=== PATIENT | female | born 1955 | race Caucasian/White ===

== ENCOUNTER 2018-11-25 13:46 | Emergency (ER) | payer BC ==
[2018-11-25 15:01] LABS: #Eosinphils 0.1 thou/uL (0.0-0.7); #Lymphocytes 0.6 thou/uL (1.20-3.40); #Monocytes 0.6 thou/uL (0.11-0.59); #Neutrophils 9.2 thou/uL (1.40-6.50); %Eosinophils 0.9 % (0.0-10.0); %Lymphocytes 5.3 % (21.0-51.0); %Monocytes 6.1 % (0.0-10.0); %Neutrophils 87.7 % (42.0-75.0); Hemoglobin 12.7 g/dL (12.0-16.0); Mean Corpuscular HGB CONC 34.1 g/dL (32.0-36.0); Mean Corpuscular Hemoglobin 29.7 pg (27.0-31.0); Mean Corpuscular Volume 86.9 fL (78.0-98.0); Mean Platelet Volume 7.8 fL (7.4-10.4); Platelet Count 195 thou/uL (130-400); RBC Distribution Width 14.5 % (11.5-14.5); Red Blood Cell (RBC) Count 4.28 mill/uL (4.20-5.40); White Blood Cell (WBC) Count 10.5 thou/uL (4.8-10.8)
[2018-11-25 15:18] LABS: ALT (SGPT) 9 U/L (8-55); AST (SGOT) 52 U/L (5-34); Albumin 4.3 g/dL (3.4-4.8); Alkaline Phosphatase 80 U/L (40-150); Anion Gap 20 mmol/L (10-20); BUN (Urea Nitrogen) 23 mg/dL (9.8-20.1); Bilirubin, Total 1.2 mg/dL (0.2-1.2); Calc. Creatinine Clearance 0 mL/min (70-130); Carbon Dioxide 19 mmol/L (23-31); Chloride 102 mmol/L (98-107); Estimated GFR-MDRD 32; Glucose 368 mg/dL (80-115); Protein, Total 7.3 g/dL (6.0-8.3); Sodium 136 mmol/L (136-145)
[2018-11-25] MEDS ORDERED: Morphine 4 MG/ML VIAL ONE (15:50)
[2018-11-25] MEDS ORDERED: Ondansetron PF 4 MG/2 ML Vial ONE (15:50)
[2018-11-25 15:56] LABS: CKMB 67.6 ng/mL (0-6.6)
--- NOTE | 2018-11-25 16:27 | CT ---
CT PULMONARY ANGIOGRAM WITH IV CONTRAST AND 3-D POSTPROCESSING: HISTORY:Dyspnea, elevated d-dimer and elevated troponin FINDINGS: There is good contrast opacification of the pulmonary arterial vasculature without filling defects to suggest pulmonary embolism. The thoracic aorta is well opacified without aneurysm or dissection. There are small bilateral pleural effusions with adjacent mild atelectatic changes/infiltrates. A sma ll pericardial effusion is noted. Mild patchy infiltrates seen in the lung maynard bilaterally. There are degenerative changes in the spine. IMPRESSION: No CT evidence of pulmonary embolism.
[2018-11-25] MEDS ORDERED: Aspirin 325 MG TAB ONE (16:46)
[2018-11-25] MEDS ORDERED: Clopidogrel Bisulfate 75 MG TAB ONE (16:46)
[2018-11-25] MEDS ORDERED: Furosemide 20 MG/2 ML VIAL ONE (16:46)
[2018-11-25] MEDS ORDERED: Enoxaparin Sodium 30 MG/0.3 ML SYRINGE ONE (16:49)
[2018-11-25] MEDS ORDERED: Enoxaparin Sodium 80 MG/0.8 ML SYRINGE ONE (16:49)
[2018-11-25 19:37] LABS: CKMB 95.3 ng/mL (0-6.6); Troponin I 20.093 ng/mL (< 0.028)
--- NOTE | 2018-11-28 08:24 | CON ---
DATE OF CONSULTATION: 11/25/2018 REASON FOR CONSULTATION: Elevated troponin. HISTORY OF PRESENT ILLNESS: Ms. Lazacno is a very pleasant 63-year-old woman, with a complicated past medical history. She states she has a history of aortic stenosis in addition to underlying coronary artery disease. She has a history of occluded right coronary artery in addition to a stent placement to the OM branch and LAD. Her angio was complicated last month by a mesenteric hematoma. Interventional Radiology was involved and required a covered stent placement to the right common femoral artery per Dr. Kaiden Yan. This was also complicated by a stroke. She has been in rehab and finally went home recently. She then developed nausea, vomiting, and diarrhea. This has been occurring over the last seven days. She was seen and evaluated in the emergency room, where she did receive IV hydration and went home on Zofran. She then states the following day, she continued to have nausea, vomiting, and diarrhea. She was admitted to a local facility. Her initial troponin was 0.1. Her followup troponin at [facility] was 7. During my initial evaluation, she was nausea, vomiting, and diarrhea free. No current chest pain. She states her chest pain prior to intervention was substernal and has not had any symptoms since her intervention one month ago. . Job ID: [id number]
== END 2018-11-25 20:44 | disposition short-term general hospital (02) ==
LOC: ERS 13:46
DX: I21.4 Non-ST elevation (NSTEMI) myocardial infarction (principal); R11.2 Nausea with vomiting, unspecified; E11.9 Type 2 diabetes mellitus without complications; I10 Essential (primary) hypertension; E78.5 Hyperlipidemia, unspecified; Z79.51 Long term (current) use of inhaled steroids; Z79.82 Long term (current) use of aspirin; Z86.73 Personal history of transient ischemic attack (TIA), and cerebral infarction without residual deficits; Z79.899 Other long term (current) drug therapy
CPT/HCPCS: 36415; 71275; 80053; 82553; 84484; 85025; 93005; 96372; 96374; 96375; J1650; J1940; J2270; J2405